=== PATIENT | female | born 1990 | race Caucasian/White ===

== ENCOUNTER 2018-10-01 15:35 | Emergency (ER) | payer SELFPAY ==
[~2018-10-01] VITALS: Ht 162.6 cm; Wt 68.5 kg
[~2018-10-01 15:35] MED LIST: IBUP800T48 PO; METH750T93 PO
[2018-10-01 15:46] VITALS: Ht 162.6 cm; Wt 68.5 kg
[2018-10-01] MEDS ORDERED: METHOCARBAMOL 750 MG TAB PO ONE (16:30)
[2018-10-01] MEDS ORDERED: ACETAMINOPHEN 325 MG TAB PO ONE (16:30)
[2018-10-01] MEDS ORDERED: KETOROLAC 15 MG INJ IM STA (17:29)
[2018-10-01] MEDS ORDERED: METHOCARBAMOL 500 MG TAB PO ONE (17:30)
[2018-10-01] MEDS ORDERED: NAPROXEN 500 MG TAB PO ONE (19:00)
[2018-10-01 19:04] VITALS: BP 123/89; PULSE 87; RESP 16
== END 2018-10-01 19:04 | disposition home or self-care (01) ==
LOC: FTE 15:35
DX: M25.511 Pain in right shoulder (principal); M54.2 Cervicalgia; M54.9 Dorsalgia, unspecified; R51 Headache
CPT/HCPCS: 70450; 73030; 81025; 99284; J1885